=== PATIENT | female | born 1980 ===

== ENCOUNTER 2017-08-25 21:56 | Emergency (ER) | payer MEDICAID, OTHER ==
[2017-08-25 22:05] VITALS: BMI 22.6
[2017-08-25 22:11] VITALS: TEMP 97.6
[2017-08-25] MEDS ORDERED: Sodium Chloride 0.9% 1,000 ML IV STA (22:30)
--- NOTE | 2017-08-25 22:34 | ED PDOC ---
Arrival/HPI <Jose Pritchett - Last Filed: 08/25/17 22:54> - General Historian: Patient <Karin Sigala PA-C - Last Filed: 08/26/17 00:20> - General Chief Complaint: Abdominal Pain Time Seen by Provider: 08/25/17 22:09 - History of Present Illness Narrative History of Present Illness (Text): 08/25/17 22:31 37 yo F complains of gradual onset of constant non-radiating epigastric abdominal pain, associated with 2 episodes of vomiting. Admits to eating old food from 6 days ago earlier today. Patient states that the pain started at 4pm while she was at the gym, at that time the pain was mild, resolved then recurred and has been increasing in intensity since 8pm tonight, Otherwise: (-) nausea, (-) diarrhea, (-) fever, (-) urinary symptoms, (-) back pain, (-) melena , (-) hematochezia. Has no history of prior abdominal surgery. PMD Archer (Karin Sigala PA-C) Past Medical History - Provider Review Nursing Documentation Reviewed: Yes - Infectious Disease Hx of Infectious Diseases: None - Reproductive Menopause: No - Cardiac Hx Cardiac Disorders: No - Pulmonary Hx Respiratory Disorders: No - Neurological Hx Neurological Disorder: No - HEENT Hx HEENT Disorder: No - Renal Hx Renal Disorder: No - Endocrine/Metabolic Hx Endocrine Disorders: No - Hematological/Oncological Hx Blood Disorders: No - Integumentary Hx Dermatological Disorder: Yes Hx Eczema: Yes - Musculoskeletal/Rheumatological Hx Musculoskeletal Disorders: No - Gastrointestinal Hx Gastrointestinal Disorders: No - Genitourinary/Gynecological Hx Genitourinary Disorders: No - Psychiatric Hx Psychophysiologic Disorder: No Hx Substance Use: No <Karin Sigala PA-C - Last Filed: 08/26/17 00:20> Family/Social History - Physician Review Nursing Documentation Reviewed: Yes Family/Social History: No Known Family HX Smoking Status: Never Smoked Hx Alcohol Use: No Hx Substance Use: No <Karin Sigala PA-C - Last Filed: 08/26/17 00:20> Allergies/Home Meds <Jose Pritchett - Last Filed: 08/25/17 22:54> <Karin Sigala PA-C - Last Filed: 08/26/17 00:20> Allergies/Adverse Reactions: Allergies No Known Allergies Allergy (Verified 08/25/17 22:05) Review of Systems - Review of Systems Constitutional: absent: Fatigue, Weight Change, Fevers Respiratory: absent: SOB, Cough, Sputum Cardiovascular: absent: Chest Pain, Palpitations, Edema Gastrointestinal: Abdominal Pain, Vomiting. absent: Constipation, Appetite Changes Genitourinary Female: absent: Dysuria, Frequency, Hematuria Musculoskeletal: absent: Arthralgias, Back Pain, Neck Pain Skin: absent: Rash, Pruritis, Skin Lesions <Karin Sigala PA-C - Last Filed: 08/26/17 00:20> Physical Exam <Jose Pritchett - Last Filed: 08/25/17 22:54> <Karin Sigala PA-C - Last Filed: 08/26/17 00:20> - Physical Exam Narrative Physical Exam (Text): 08/25/17 22:34 GENERAL APPEARANCE: Patient is awake, alert, oriented x 3, in mild painful distress. SKIN: Warm, dry; (-) cyanosis. EYES: (-) conjunctival pallor, (-) scleral icterus. ENMT: Mucous membranes moist. NECK: (-) tenderness, (-) stiffness, (-) lymphadenopathy. CHEST AND RESPIRATORY: (-) rales, (-) rhonchi, (-) wheezes; breath sounds equal bilaterally. HEART AND CARDIOVASCULAR: (-) irregularity; (-) murmur, (-) gallop. ABDOMEN AND GI: (-) distention. Bowel sounds active; (+) mild epigastric tenderness, (-) guarding, (-) rebound, (-) palpable masses, (-) CVA tenderness. EXTREMITIES: (-) deformity, (-) edema, (+) distal pulses. NEURO AND PSYCH: Mental status as above; (-) focal findings. (Karin Sigala PA-C) Vital Signs Temp Pulse Resp BP Pulse Ox 08/26/17 00:02 80 16 113/61 100 08/25/17 22:05 97.6 F 89 19 120/80 96 Medical Decision Making <Jose Pritchett - Last Filed: 08/25/17 22:54> <Karin Sigala PA-C - Last Filed: 08/26/17 00:20> ED Course and Treatment: 08/25/17 22:33 37 yo F complains of gradual onset of constant non-radiating epigastric abdominal pain, associated with 2 episodes of vomiting. Plan: -- Labs -- IV fluids -- Urinalysis -- Pepcid / Zofran / Toradol -- Reassess and disposition Labs reviewed and are wnl. On re-evaluation, patient reports significant improvement of symptoms, reports no nausea, vomiting or abdominal pain. On exam, patient is in no distress, abdomen is soft with no tenderness, no guarding, no rebound. Dx of gastroenteritis d/w the patient. Instructed to follow up with primary care physician in 1-2 days without fail. Advised to take medication as prescribed. Return to the emergency room at any time for any new or worsening symptoms. Patient states she fully agrees with and understands discharge instructions. States that she agrees with the plan and disposition. Verbalized and repeated discharge instructions and plan. I have given the patient opportunity to ask any additional questions. (Krain Sigala PA-C) - Lab Interpretations Lab Results: 08/25/17 22:15 08/25/17 22:15 Lab Results 08/25/17 23:30: Urine Color Yellow, Urine Appearance Sl cloudy, Urine pH 6.0, Ur Specific [place] >= 1.030, Urine Protein Negative, Urine Glucose (UA) Negative, Urine Ketones Negative, Urine Blood Trace-intact H, Urine Nitrate Positive H, Urine Bilirubin Negative, Urine Urobilinogen 0.2, Ur Leukocyte Esterase Negative, Urine RBC Pending, Urine WBC Pending 08/25/17 22:15: Sodium 138, Potassium 4.5, Chloride 102, Carbon Dioxide 26, Anion Gap 14, BUN 21, Creatinine 0.7, Est GFR ( Amer) > 60, Est GFR (Non- Af Amer) > 60, Random Glucose 126 H, Calcium 9.7, Total Bilirubin 0.3, AST 38 H , ALT 40, Alkaline Phosphatase 74, Total Protein 7.9, Albumin 4.5, Globulin 3.4 , Albumin/Globulin Ratio 1.3, Lipase 130 08/25/17 22:15: PT 12.0, INR 1.10 H, APTT 25.7 08/25/17 22:15: WBC 8.8, RBC 4.58, Hgb 12.8, Hct 38.6, MCV 84.3, MCH 27.9, MCHC 33.2, RDW 13.1, Plt Count 215, MPV 11.4 H, Gran % 61.0, Lymph % (Auto) 33.6, [place] % (Auto) 4.4, Eos % (Auto) 0.7 L, Baso % (Auto) 0.3, Gran # 5.36, Lymph # 3.0, [place] # 0.4, Eos # 0.1, Baso # 0.03 - Medication Orders Current Medication Orders: Discontinued Medications Famotidine (Pepcid) 20 mg IVP STAT STA Stop: 08/25/17 22:31 Last Admin: 08/25/17 22:43 Dose: 20 mg IVP Administration Document 08/25/17 22:43 CNR (Rec: 08/25/17 22:43 CNR [id number]) Charges for Administration # of IVP Administrations 1 Sodium Chloride (Sodium Chloride 0.9%) 1,000 mls @ 1,000 mls/hr IV .Q1H STA Stop: 08/25/17 23:29 Last Admin: 08/25/17 22:42 Dose: 1,000 mls/hr eMAR Start Stop Document 08/25/17 22:42 CNR (Rec: 08/25/17 22:42 CNR [id number]) Intravenous Solution Start Date 08/25/17 Start Time 22:42 Ketorolac Tromethamine (Toradol) 30 mg IVP STAT STA Stop: 08/25/17 22:31 Last Admin: 08/25/17 23:27 Dose: 30 mg MAR Pain Assessment Document 08/25/17 23:27 CNR (Rec: 08/25/17 23:27 CNR [id number]) Pain Reassessment Is this a pain reassessment? Yes Location Pain Location Body Site Abdomen Description Description Constant IVP Administration Document 08/25/17 23:27 CNR (Rec: 08/25/17 23:27 CNR [id number]) Charges for Administration # of IVP Administrations 1 Ondansetron HCl (Zofran Inj) 4 mg IVP STAT STA Stop: 08/25/17 22:31 Last Admin: 08/25/17 22:43 Dose: 4 mg IVP Administration Document 08/25/17 22:43 CNR (Rec: 08/25/17 22:43 CNR [id number]) Charges for Administration # of IVP Administrations 1 - PA / RENAL MEDICINE PHYSICIAN / Resident Statement MYRA has reviewed & agrees with the documentation as recorded. MYRA has examined the patient and agrees with the treatment plan. <Jose Pritchett - Last Filed: 08/25/17 22:54> - PA / RENAL MEDICINE PHYSICIAN / Resident Statement MYRA has reviewed & agrees with the documentation as recorded. <Karin Sigala PA-C - Last Filed: 08/26/17 00:20> Disposition/Present on Arrival <Jose Pritchett - Last Filed: 08/25/17 22:54> - Present on Arrival Any Indicators Present on Arrival: No History of DVT/PE: No History of Uncontrolled Diabetes: No Urinary Catheter: No History of Decub. Ulcer: No History Surgical Site Infection Following: None - Disposition Have Diagnosis and Disposition been Completed?: Yes Disposition Time: 00:00 Patient Plan: Discharge <Karin Sigala PA-C - Last Filed: 08/26/17 00:20> - Disposition Diagnosis: Abdominal pain, Vomiting, UTI (urinary tract infection) Disposition: HOME/ ROUTINE Patient Problems: Current Active Problems Problem Status Onset Abdominal pain Acute Vomiting Acute Condition: IMPROVED Discharge Instructions (ExitCare): Acute Nausea and Vomiting (ED), Abdominal Pain (ED), Urinary Tract Infection in Women (ED) Print Language: SERBIAN Additional Instructions: Thank you for letting us take care of you today. You were treated for abdominal pain, vomiting. The emergency medical care you received today was directed at your acute symptoms. If you were prescribed any medication, please fill it and take as directed. It may take several days for your symptoms to resolve. Return to the Emergency Department if your symptoms worsen, do not improve, or if you have any other problems. Please contact your doctor in 2 days for re-evaluation and follow up. Bring any paperwork you were given at discharge with you along with any medications you are taking to your follow up visit. Our treatment cannot replace ongoing medical care by a primary care provider (PCP) outside of the emergency department. Thank you for allowing the [facility] team to be part of your care today. Prescriptions: Famotidine [Pepcid] 40 mg PO DAILY #20 tablet Nitrofurantoin Macrocrystals [Macrobid] 100 mg PO BID #14 cap Ondansetron ODT [Zofran ODT] 4 mg PO DAILY PRN #20 odt PRN Reason: Nausea/Vomiting Referrals: Juwan Archer MD [Primary Care Provider] - Follow up with primary Forms: [employer] (Sami)
[2017-08-25 22:41] LABS: BASO # 0.03 K/mm3 (0.0-2.0); BASO % 0.3 % (0.0-3.0); EOS # 0.1 (0.0-0.7); EOS % 0.7 % (1.5-5.0); GRAN # 5.36 (1.4-6.5); HEMOGLOBIN 12.8 g/dL (12.0-16.0); LYMPH % 33.6 % (22.0-35.0); MEAN CELL VOLUME 84.3 fl (80.0-105.0); MEAN CORPUSCULAR HEMOGLOBIN 27.9 pg (25.0-35.0); MEAN CORPUSCULAR HGB CONC 33.2 g/dl (31.0-37.0); MEAN PLATELET VOLUME 11.4 fl (7.0-11.0); MONO # 0.4 (0.1-0.6); MONO % 4.4 % (1.0-6.0); RBC 4.58 10^6/uL (3.5-6.1); RED CELL DISTRIBUTION WIDTH 13.1 % (11.5-14.5); WHITE BLOOD COUNT 8.8 10^3/ul (4.5-11.0)
[2017-08-25 22:48] LABS: ALB/GLOB RATIO 1.3 (1.1-1.8); ALBUMIN 4.5 g/dL (3.0-4.8); ALT/SGPT 40 U/L (7-56); AST/SGOT 38 U/L (14-36); BLOOD UREA NITROGEN 21 mg/dL (7-21); CALCIUM 9.7 mg/dL (8.4-10.5); GFR AFRICAN-AMERICAN > 60; GFR NON-AFRICAN AMERICAN > 60; LIPASE 130 U/L (23-300)
[2017-08-25 22:51] LABS: INR 1.1 (0.93-1.08); PARTIAL THROMBOPLASTIN TIME 25.7 Seconds (25.1-36.5)
[2017-08-25 23:57] LABS: URINE BILIRUBIN NEGATIVE (NEGATIVE); URINE BLOOD TRACE-INTACT (NEGATIVE); URINE GLUCOSE (UA) NEGATIVE (NEGATIVE); URINE LEUKOCYTE ESTERASE NEGATIVE Leu/uL (NEGATIVE); URINE NITRATE POSITIVE (NEGATIVE); URINE PROTEIN NEGATIVE mg/dL (<30 mg/dL); URINE UROBILINOGEN 0.2 E.U./dL (<1 E.U./dL)
[2017-08-25 23:58] LABS: URINE APPEARANCE SL CLOUDY (CLEAR); URINE COLOR YELLOW (YELLOW)
[2017-08-26 00:03] VITALS: BP 113/61; PULSE 80; RESP 16; O2SAT 100
[2017-08-26 00:21] LABS: URINE RBC 0 - 2 /hpf (0-2); URINE WBC 0 - 2 /hpf (0-6)
[2017-08-26 00:22] LABS: URINE BACTERIA MANY (NEG)
== END 2017-08-26 00:31 | disposition home or self-care (01) ==
LOC: ED 21:56
DX: N39.0 Urinary tract infection, site not specified (principal); R11.10 Vomiting, unspecified; R10.9 Unspecified abdominal pain
CPT/HCPCS: 80053; 81001; 83690; 85025; 85610; 85730; 87086; 87181; 96374; 96375; 99284; J1885; J2405; J7040

== ENCOUNTER 2018-07-08 20:49 | Emergency (ER) | payer MEDICAID ==
[2018-07-08 20:50] VITALS: BMI 22.6
--- NOTE | 2018-07-08 21:11 | ED PDOC ---
Arrival/HPI - General Chief Complaint: Chest Pain Time Seen by Provider: 07/08/18 21:01 Historian: Patient - History of Present Illness Narrative History of Present Illness (Text): 07/08/18 21:10 Sebas Rankin is a 37 year old female, whose past medical history includes eczema, who presents to the Emergency department complaining of chest pain. Patient states she woke up this morning with discomfort, worsened with movement, and some shortness of breath. Patient notes she slept in an awkward position on her futon the previous night. Patient denies any oral contraceptive use, fever, chills, nausea, vomiting, diarrhea, urinary symptoms, back pain, neck pain, headache, dizziness, or any other complaints. Symptom Onset: Gradual Symptom Course: Unchanged Activities at Onset: Light Context: Home Past Medical History - Provider Review Nursing Documentation Reviewed: Yes - Infectious Disease Hx of Infectious Diseases: None - Cardiac Hx Cardiac Disorders: No - Pulmonary Hx Respiratory Disorders: No - Neurological Hx Neurological Disorder: No - HEENT Hx HEENT Disorder: No - Renal Hx Renal Disorder: No - Endocrine/Metabolic Hx Endocrine Disorders: No - Hematological/Oncological Hx Blood Disorders: No - Integumentary Hx Dermatological Disorder: Yes Hx Eczema: Yes - Musculoskeletal/Rheumatological Hx Musculoskeletal Disorders: No - Gastrointestinal Hx Gastrointestinal Disorders: No - Genitourinary/Gynecological Hx Genitourinary Disorders: No - Psychiatric Hx Psychophysiologic Disorder: No Hx Substance Use: No - Anesthesia Hx Anesthesia: No Family/Social History - Physician Review Nursing Documentation Reviewed: Yes Family/Social History: Unknown Family HX Smoking Status: Never Smoked Hx Alcohol Use: Yes Frequency of alcohol use: Socially Hx Substance Use: No Allergies/Home Meds Allergies/Adverse Reactions: Allergies No Known Allergies Allergy (Verified 07/08/18 21:10) Review of Systems - Physician Review All systems were reviewed & negative as marked: Yes - Review of Systems Constitutional: Normal. absent: Fevers Eyes: Normal ENT: Normal Respiratory: SOB Cardiovascular: Chest Pain Gastrointestinal: Normal. absent: Abdominal Pain, Diarrhea, Nausea, Vomiting Genitourinary Female: Normal. absent: Dysuria, Frequency, Hematuria, Urine Output Changes Musculoskeletal: Normal. absent: Back Pain, Neck Pain Skin: Normal. absent: Rash Neurological: Normal. absent: Headache, Dizziness Endocrine: Normal Hemo/Lymphatic: Normal Psychiatric: Normal Physical Exam Vital Signs Reviewed: Yes Vital Signs Temp 07/08/18 21:06 98.3 F Temperature: Afebrile Blood Pressure: Normal Pulse: Regular Respiratory Rate: Normal Appearance: Positive for: Well-Appearing, Non-Toxic, Comfortable Pain Distress: None Mental Status: Positive for: Alert and Oriented X 3 - Systems Exam Head: Present: Atraumatic, Normocephalic Pupils: Present: PERRL Extroacular Muscles: Present: EOMI Conjunctiva: Present: Normal Mouth: Present: Moist Mucous Membranes Neck: Present: Normal Range of Motion Respiratory/Chest: Present: Clear to Auscultation, Good Air Exchange, Tender to Palpation. No: Respiratory Distress, Accessory Muscle Use Cardiovascular: Present: Regular Rate and Rhythm, Normal S1, S2. No: Murmurs Abdomen: No: Tenderness, Distention, Peritoneal Signs Back: Present: Normal Inspection Upper Extremity: Present: Normal Inspection. No: Cyanosis, Edema Lower Extremity: Present: Normal Inspection. No: Edema Neurological: Present: GCS=15, CN II-XII Intact, Speech Normal Skin: Present: Warm, Dry, Normal Color. No: Rashes Psychiatric: Present: Alert, Oriented x 3, Normal Insight, Normal Concentration Medical Decision Making ED Course and Treatment: 07/08/18 21:10 Impression: 37 year old female complaining of chest discomfort and some shortness of breath. Plan: -- EKG -- Chest X-ray -- Labs, cardiac enzymes, D-dimer -- Toradol -- Reassess and disposition Progress Notes: Reviewed EKG, NSR at 69 bpm. Sinus arrhythmia. No acute changes. 07/08/18 23:35 Chest X-ray reviewed, shows no acute processes. 07/08/18 23:42 Labs reviewed, within normal limits. 07/08/18 23:55 On re-evaluation, patient feels better and is in no acute distress. I have discussed the results and plan with the patient, who expresses understanding. Patient in agreement with plan to be discharged home. Patient is stable for discharge. Patient was instructed to follow up with physician or return if symptoms worsen or new concerning symptoms arise. - Lab Interpretations I have reviewed the lab results: Yes - RAD Interpretation [employer] Manager: ED Physician - EKG Interpretation Interpreted by ED Physician: Yes Type: 12 lead EKG - Scribe Statement The provider has reviewed the documentation as recorded by the Scribe Susy Skinner Provider Scribe Attestation: All medical record entries made by the Scribe were at my direction and personally dictated by me. I have reviewed the chart and agree that the record accurately reflects my personal performance of the history, physical exam, medical decision making, and the department course for this patient. I have also personally directed, reviewed, and agree with the discharge instructions and disposition. Disposition/Present on Arrival - Present on Arrival Any Indicators Present on Arrival: No History of DVT/PE: No History of Uncontrolled Diabetes: No Urinary Catheter: No History of Decub. Ulcer: No History Surgical Site Infection Following: None - Disposition Have Diagnosis and Disposition been Completed?: Yes Diagnosis: Musculoskeletal chest pain Disposition: HOME/ ROUTINE Disposition Time: 23:55 Patient Plan: Discharge Patient Problems: Current Active Problems Problem Status Onset Musculoskeletal chest pain Acute Condition: GOOD Discharge Instructions (ExitCare): Chest Pain (ED) Additional Instructions: Rest/no strenuous physical activity/maintain proper body position when sleeping/take meds as prescribed/follow up with your doctor Prescriptions: Naproxen [Naprosyn Tab] 375 mg PO BID PRN #14 tab PRN Reason: Pain, Moderate (4-7) Referrals: Juwan Archer MD [Primary Care Provider] - Follow up with primary Forms: [employer] [facility] (Romanian), WORK NOTE
[2018-07-08 22:45] LABS: HEMOGLOBIN 13.6 g/dL (12.0-16.0); MEAN CELL VOLUME 82.9 fl (80.0-105.0); MEAN CORPUSCULAR HGB CONC 33.7 g/dl (31.0-37.0); MEAN PLATELET VOLUME 11.9 fl (7.0-11.0); RBC 4.86 10^6/uL (3.5-6.1); RED CELL DISTRIBUTION WIDTH 13.5 % (11.5-14.5)
[2018-07-08 22:52] LABS: INR 0.97; PARTIAL THROMBOPLASTIN TIME 27.4 Seconds (25.1-36.5)
[2018-07-08 22:56] LABS: ALB/GLOB RATIO 1.4 (1.1-1.8); ALBUMIN 4.3 g/dL (3.0-4.8); ALT/SGPT 28 U/L (7-56); AST/SGOT 28 U/L (14-36); BLOOD UREA NITROGEN 24 mg/dL (7-21); CALCIUM 9.5 mg/dL (8.4-10.5); GFR NON-AFRICAN AMERICAN > 60
[2018-07-08 23:07] LABS: TROPONIN I < 0.01 ng/mL
[2018-07-08 23:50] LABS: D DIMER < 200 ng/mlDDU (0-243)
[2018-07-09 00:14] VITALS: BP 115/68; PULSE 82; RESP 19; TEMP 98; O2SAT 98
--- NOTE | 2018-07-09 09:58 | RAD ---
Date of service: 07/08/2018 HISTORY: chest pain COMPARISON: No prior. FINDINGS: LUNGS: No active pulmonary disease. PLEURA: No significant pleural effusion identified, no pneumothorax apparent. CARDIOVASCULAR: No aortic atherosclerotic calcification present. Normal cardiac size. No pulmonary vascular congestion. OSSEOUS STRUCTURES: No significant abnormalities. VISUALIZED UPPER ABDOMEN: Normal. OTHER FINDINGS: None. IMPRESSION: No active disease.
--- NOTE | 2018-07-09 12:18 | CARD ---
APPROVED REPORT Date of service: 07/08/2018 EKG Measurement Heart [id number] <Conclusion> Normal sinus rhythm with sinus arrhythmia Normal ECG
== END 2018-07-09 00:12 | disposition home or self-care (01) ==
LOC: ED 20:49
DX: R07.89 Other chest pain (principal)
CPT/HCPCS: 71045; 80053; 82550; 83615; 84484; 85027; 85378; 85610; 85730; 93005; 96374; 99283; J1885

== ENCOUNTER 2018-11-17 19:48 | Emergency (ER) | payer MEDICAID ==
[2018-11-17 19:48] VITALS: BMI 22.6
[2018-11-17 20:57] LABS: HEMOGLOBIN 12.6 g/dL (12.0-16.0); MEAN CELL VOLUME 82.6 fl (80.0-105.0); MEAN CORPUSCULAR HEMOGLOBIN 27.3 pg (25.0-35.0); MEAN CORPUSCULAR HGB CONC 33.1 g/dl (31.0-37.0); MEAN PLATELET VOLUME 12.3 fl (7.0-11.0); RBC 4.61 10^6/uL (3.5-6.1); RED CELL DISTRIBUTION WIDTH 13.7 % (11.5-14.5); WHITE BLOOD COUNT 7.7 10^3/uL (4.5-11.0)
[2018-11-17 21:03] LABS: INR 1.06; PARTIAL THROMBOPLASTIN TIME 31.2 Seconds (26.9-38.3); PROTHROMBIN TIME 11.8 SECONDS (9.4-12.5)
[2018-11-17 21:04] LABS: ALB/GLOB RATIO 1.1 (1.1-1.8); ALBUMIN 4.1 g/dL (3.0-4.8); ALT/SGPT 27 U/L (7-56); AST/SGOT 33 U/L (14-36); BLOOD UREA NITROGEN 19 mg/dL (7-21); CALCIUM 9.5 mg/dL (8.4-10.5); D DIMER < 200 ng/mlDDU (0-243); GFR NON-AFRICAN AMERICAN > 60
--- NOTE | 2018-11-17 21:05 | ED PDOC ---
Arrival/HPI - General Chief Complaint: Shortness Of Breath Time Seen by Provider: 11/17/18 19:56 Historian: Patient - History of Present Illness Narrative History of Present Illness (Text): 11/17/18 21:01 38 year old female, with no significant past medical history, presents to the Emergency department complaining of shortness of breath, for 2 weeks. Patient states feelings of shortness of breath are occasional and intermittent. Patient denies any associated chest or leg pain. Patient denies any history of exertional dyspnea or exertional chest pain. Patient feels symptoms may be due to her recent anxiety caused by family issues. Patient denies any recent travel. Patient denies any fever, chills, nausea, vomiting, diarrhea, urinary symptoms, back pain, neck pain, headache, dizziness, or any other complaints. Time/Duration: > week (2 weeks) Symptom Onset: Gradual Symptom Course: Unchanged Activities at Onset: Light Context: Home Past Medical History - Provider Review Nursing Documentation Reviewed: Yes - Infectious Disease Hx of Infectious Diseases: None - Cardiac Hx Cardiac Disorders: No - Pulmonary Hx Respiratory Disorders: No - Neurological Hx Neurological Disorder: No - HEENT Hx HEENT Disorder: No - Renal Hx Renal Disorder: No - Endocrine/Metabolic Hx Endocrine Disorders: No - Hematological/Oncological Hx Blood Disorders: No - Integumentary Hx Dermatological Disorder: Yes Hx Eczema: Yes - Musculoskeletal/Rheumatological Hx Musculoskeletal Disorders: No - Gastrointestinal Hx Gastrointestinal Disorders: No - Genitourinary/Gynecological Hx Genitourinary Disorders: No - Psychiatric Hx Psychophysiologic Disorder: No Hx Substance Use: No - Anesthesia Hx Anesthesia: No Family/Social History - Physician Review Nursing Documentation Reviewed: Yes Family/Social History: No Known Family HX Smoking Status: Never Smoked Hx Alcohol Use: Yes Hx Substance Use: No Allergies/Home Meds Allergies/Adverse Reactions: Allergies No Known Allergies Allergy (Verified 11/17/18 20:02) Home Medications: Home Meds Medication Instructions Recorded Confirmed No Known Home Med 11/17/18 11/17/18 Review of Systems - Physician Review All systems were reviewed & negative as marked: Yes - Review of Systems Constitutional: absent: Fevers, Night Sweats Respiratory: SOB Cardiovascular: absent: Chest Pain, Calf Pain Gastrointestinal: absent: Diarrhea, Nausea, Vomiting Genitourinary Female: Normal Musculoskeletal: absent: Back Pain, Neck Pain Neurological: absent: Headache, Dizziness Physical Exam Vital Signs Reviewed: Yes Vital Signs Pulse Resp BP Pulse Ox 11/17/18 20:03 18 99 11/17/18 19:57 73 18 115/78 99 Blood Pressure: Normal Pulse: Regular Respiratory Rate: Normal Appearance: Positive for: Well-Appearing, Non-Toxic, Comfortable Pain Distress: None Mental Status: Positive for: Alert and Oriented X 3 - Systems Exam Head: Present: Atraumatic, Normocephalic Pupils: Present: PERRL Extroacular Muscles: Present: EOMI Conjunctiva: Present: Normal Mouth: Present: Moist Mucous Membranes Neck: Present: Normal Range of Motion Respiratory/Chest: Present: Clear to Auscultation, Good Air Exchange. No: Respiratory Distress, Accessory Muscle Use Cardiovascular: Present: Regular Rate and Rhythm, Normal S1, S2. No: Murmurs Abdomen: No: Tenderness, Distention, Peritoneal Signs Back: Present: Normal Inspection Upper Extremity: Present: Normal Inspection. No: Cyanosis, Edema Lower Extremity: Present: Normal Inspection. No: Edema Neurological: Present: GCS=15, CN II-XII Intact, Speech Normal Skin: Present: Warm, Dry, Normal Color. No: Rashes Psychiatric: Present: Alert, Oriented x 3, Normal Insight, Normal Concentration Medical Decision Making ED Course and Treatment: 11/17/18 21:07 Impression: 38 year old female presents with shortness of breath. Plan: -- EKG -- Cardiac Iso, CMP -- Chest X-ray -- X-ray LS Spine -- Reassess and disposition Prior Visits: Notes and results from previous visits were reviewed. Progress Notes: EKG reviewed by me, shows: Normal sinus rhythm @73 bpm No acute changes 11/17/18 22:39 Chest X-ray reviewed by me, shows: No acute process LS Spine X-ray reviewed by me, shows: No acute process - RAD Interpretation Radiology Orders: 11/17/18 20:03 CHEST PORTABLE [RAD] Stat 11/17/18 20:39 LS SPINE AP/LAT [RAD] Stat - Scribe Statement The provider has reviewed the documentation as recorded by the Scribe Naresh Hess Provider Scribe Attestation: All medical record entries made by the Scribe were at my direction and personally dictated by me. I have reviewed the chart and agree that the record accurately reflects my personal performance of the history, physical exam, medical decision making, and the department course for this patient. I have also personally directed, reviewed, and agree with the discharge instructions and disposition. Disposition/Present on Arrival - Present on Arrival Any Indicators Present on Arrival: No History of DVT/PE: No History of Uncontrolled Diabetes: No Urinary Catheter: No History of Decub. Ulcer: No History Surgical Site Infection Following: None - Disposition Have Diagnosis and Disposition been Completed?: Yes Diagnosis: Anxiety Disposition: HOME/ ROUTINE Disposition Time: 22:51 Patient Plan: Discharge Condition: GOOD Discharge Instructions (ExitCare): Anxiety, Adult (DC) Additional Instructions: Follow up with your doctor this week/any persistent recurrent/worsening symptoms return to the emergency room Forms: [facility] (Zambian), WORK NOTE
[2018-11-17 21:15] LABS: TROPONIN I < 0.01 ng/mL
[2018-11-17 21:50] VITALS: TEMP 97.4
[2018-11-17 23:20] VITALS: BP 104/71; PULSE 77; RESP 16; O2SAT 99
--- NOTE | 2018-11-18 08:06 | RAD ---
Date of service: 11/17/2018 PROCEDURE: CHEST RADIOGRAPH, 1 VIEW HISTORY: sob COMPARISON: 07/08/2018 FINDINGS: LUNGS: Clear. PLEURA: No pneumothorax or pleural fluid seen. CARDIOVASCULAR: No aortic atherosclerotic calcification present. Normal. OSSEOUS STRUCTURES: No significant abnormalities. VISUALIZED UPPER ABDOMEN: Normal. OTHER FINDINGS: None. IMPRESSION: No active disease.
--- NOTE | 2018-11-18 08:14 | RAD ---
Date of service: 11/17/2018 PROCEDURE: Radiographs of the Lumbar Spine. HISTORY: lower back pain COMPARISON: No prior. FINDINGS: BONES: Normal alignment. No listhesis. No fracture. DISC SPACES: Disc degeneration at L5-S1 OTHER FINDINGS: None. IMPRESSION: No acute findings
--- NOTE | 2018-11-18 12:30 | CARD ---
APPROVED REPORT Date of service: 11/17/2018 EKG Measurement Heart [id number] [place] 144P68 [id number] <Conclusion> Poor data quality, interpretation may be adversely affected Normal sinus rhythm with sinus arrhythmia Normal ECG
== END 2018-11-17 23:20 | disposition home or self-care (01) ==
LOC: ED 19:48
DX: F41.9 Anxiety disorder, unspecified (principal)